=== PATIENT | female | born 1990 | race American Indian/Alaskan Native ===

== ENCOUNTER 2021-10-28 20:13 | Emergency (ER) | payer OTHER ==
[2021-10-29 01:58] LABS: HCG Qualitative,Urine Negative (Negative)
[2021-10-29 01:59] LABS: Bilirubin,Urine NEG (Negative); Blood,Urine MOD (Negative); Color,Urine Yellow (Yellow); Mucus,Urine 2+ /HPF
[2021-10-29 02:04] LABS: Basophils % (Auto) 0.6 % (0.0-1.8); Eosinophils # (Auto) 0.1 K/mm3 (0.0-0.4); Eosinophils % (Auto) 1.7 % (0.0-4.3); Hematocrit 52.2 % (30.3-42.9); Hemoglobin 16.9 gm/dl (10.1-14.3); Lymphocytes # (Auto) 2.8 K/mm3 (1.2-5.4); Lymphocytes % (Auto) 48.7 % (13.4-35.0); Mean Corpuscular HGB Conc 32 % (30-34); Mean Corpuscular Volume 90 fl (79-97); Monocytes # (Auto) 0.8 K/mm3 (0.0-0.8); Monocytes % (Auto) 13.3 % (0.0-7.3); Platelet Count 213 K/mm3 (140-440)
--- NOTE | 2021-10-29 02:19 | XRay Report ---
CHEST 2 VIEWS INDICATION / CLINICAL INFORMATION: palpitations. COMPARISON: None available. FINDINGS: SUPPORT DEVICES: None. HEART / MEDIASTINUM: No significant abnormality. LUNGS / PLEURA: No significant pulmonary or pleural abnormality. No pneumothorax. ADDITIONAL FINDINGS: Mild scoliosis of the lower thoracic spine apex to the right centered at T9-T10 interspace. IMPRESSION: 1. No active cardiopulmonary disease. Signer Name: Robert Negrete II, MD Signed: 10/29/2021 2:14 AM Workstation Name: [id number]
[2021-10-29 02:28] LABS: Alanine Aminotransferase 28 units/L (7-56); BUN/Creatinine Ratio 11; Blood Urea Nitrogen 14 mg/dL (7-17); Calcium 8.8 mg/dL (8.4-10.2); Hemolysis Index 18
[2021-10-29] MEDS ORDERED: SODIUM CHLORIDE 0.9% 1000 ML 1,000 ML IV ONE (05:37)
[2021-10-29] MEDS ORDERED: ONDANSETRON 4 MG/2 ML INJ IV ONE (05:37)
[2021-10-29] MEDS ORDERED: METOPROLOL TARTRATE 50 MG TAB PO ONE (07:01)
--- NOTE | 2021-10-29 07:07 | Emergency Department Report ---
ED Palpitations HPI - General Chief Complaint: Dyspnea/Respdistress Stated Complaint: PAIN URINTAING/HEART PALPATIONS Time Seen by Provider: 10/29/21 06:36 Source: patient, old records reviewed ([facility] Mode of arrival: Ambulatory Limitations: No Limitations - History of Present Illness Initial Comments: 31-year-old with a past medical history hypertension, paroxysmal atrial fibrillation presents to the hospital complaining of palpitations and dyspnea exertion for the last 2 days. Patient has reinitiated her backup Eliquis (1 tablet/day) for the past 2 days since symptoms began. Last episode of atrial fibrillation was 1 year ago. Patient had spontaneously converts to sinus rhythm without cardioversion in the past. She denies chest pain, nausea, vomiting, diaphoresis, calf tenderness, or leg edema. She is currently taking carvedilol 6.25 mg. She is out of her Norvasc 10 mg in triamterene 37.5 mg tablets. Patient also complains of some mild dysuria for the past 2 days without urinary frequency or urgency. Radiology Technologist: Dr. Duncan with [facility] - Related Data Previous Rx's Medication Instructions Recorded Last Taken Type Apixaban [Eliquis] 5 mg PO BID #60 tab 10/29/21 Unknown Rx Metoprolol [Lopressor TAB] 50 mg PO BID #60 tablet 10/29/21 Unknown Rx Allergies Allergy/AdvReac Type Severity Reaction Status Date / Time lisinopril Allergy Unknown Verified 10/28/21 22:02 ED Review of Systems ROS: Stated complaint: PAIN URINTAING/HEART PALPATIONS Other details as noted in HPI Comment: All other systems reviewed and negative ED Past Medical Hx - Past Medical History Previous Medical History?: No Hx Hypertension: Yes Additional medical history: afib - Surgical History Past Surgical History?: No - Medications Home Medications: Home Medications Medication Instructions Recorded Confirmed Last Taken Type Apixaban [Eliquis] 5 mg PO BID #60 tab 10/29/21 Unknown Rx Metoprolol [Lopressor TAB] 50 mg PO BID #60 tablet 10/29/21 Unknown Rx ED Physical Exam - General Limitations: No Limitations - Other Other exam information: General: No acute distress Head: Atraumatic Eyes: normal appearance ENT: Moist mucous membranes Neck: Normal appearance, no midline tenderness Chest: Clear to auscultation bilaterally CV: Mild tachycardia, regular rhythm Abdomen: Soft, normal bowel sounds, nontender, nondistended, no rebound or guard ing Back: Normal inspection Extremity: Normal inspection, full range of motion, no calf tenderness or leg edema Neuro: Alert O x 3, no facial asymmetry, speech clear, no gross motor sensory deficit Psych: Appropriate behavior Skin: No rash ED Course Vital Signs 10/28/21 10/29/21 10/29/21 21:59 01:57 08:24 Temperature 97.8 F Pulse Rate 65 110 H 100 H Respiratory 18 Rate Blood Pressure 150/109 147/93 Blood Pressure [Left] O2 Sat by Pulse 96 Oximetry 10/29/21 10:07 Temperature Pulse Rate 75 Respiratory 15 Rate Blood Pressure Blood Pressure 122/78 [Left] O2 Sat by Pulse 100 Oximetry - Consultations Consultation #1: 10/29/21 07:02 case discussed with on-call mulcher operator Dr. Moy who recommends metoprolol 50 mg twice daily and DC with follow if symptoms and heart rate improved. Patient will be instructed to discontinue her carvedilol and other BP medications at the time ED Medical Decision Making - Lab Data Result diagrams: 10/29/21 07:19 10/29/21 07:19 Lab Results 10/29/21 10/29/21 10/29/21 Range/Units 01:26 01:26 06:09 WBC 5.9 (4.5-11.0) K/mm3 RBC 5.80 H (3.65-5.03) M/mm3 Hgb 16.9 H (10.1-14.3) gm/dl Hct 52.2 H (30.3-42.9) % MCV 90 (79-97) fl MCH 29 (28-32) pg MCHC 32 (30-34) % RDW 15.0 (13.2-15.2) % Plt Count 213 (140-440) K/mm3 Lymph % (Auto) 48.7 H (13.4-35.0) % [place] % (Auto) 13.3 H (0.0-7.3) % Eos % (Auto) 1.7 (0.0-4.3) % Baso % (Auto) 0.6 (0.0-1.8) % Lymph # (Auto) 2.8 (1.2-5.4) K/mm3 [place] # (Auto) 0.8 (0.0-0.8) K/mm3 Eos # (Auto) 0.1 (0.0-0.4) K/mm3 Baso # (Auto) 0.0 (0.0-0.1) K/mm3 Seg Neutrophils % 35.7 L (40.0-70.0) % Seg Neutrophils # 2.1 (1.8-7.7) K/mm3 PT (12.2-14.9) Sec. INR (0.87-1.13) APTT (24.2-36.6) Sec. Sodium 141 (137-145) mmol/L Potassium 3.9 (3.6-5.0) mmol/L Chloride 104.3 (98-107) mmol/L Carbon Dioxide 25 (22-30) mmol/L Anion Gap 16 mmol/L BUN 14 (7-17) mg/dL Creatinine 1.3 H (0.6-1.2) mg/dL Estimated GFR 48 ml/min BUN/Creatinine Ratio 11 % Glucose 81 (65-100) mg/dL Calcium 8.8 (8.4-10.2) mg/dL Total Bilirubin 0.60 (0.1-1.2) mg/dL AST 19 (5-40) units/L ALT 28 (7-56) units/L Alkaline Phosphatase 124 (35-129) units/L Troponin T < 0.010 < 0.010 (0.00-0.029) ng/mL Total Protein 8.1 (6.3-8.2) g/dL Albumin 4.0 (3.9-5) g/dL Albumin/Globulin Ratio 1.0 % TSH (0.270-4.200) mlU/mL Urine Color (Yellow) Urine Turbidity (Clear) Urine pH (5.0-7.0) Ur Specific [place] (1.003-1.030) Urine Protein (Negative) mg/dL Urine Glucose (UA) (Negative) mg/dL Urine Ketones (Negative) mg/dL Urine Blood (Negative) Urine Nitrite (Negative) Ur Reducing Substances Urine Bilirubin (Negative) Urine Ictotest Urine Urobilinogen (<2.0) mg/dL Ur Leukocyte Esterase (Negative) Urine WBC (Auto) (0.0-6.0) /HPF Urine RBC (Auto) (0.0-6.0) /HPF U Epithel Cells (Auto) (0-13.0) /HPF Urine Mucus /HPF Urine HCG, Qual (Negative) 10/29/21 10/29/21 10/29/21 Range/Units 06:09 07:19 07:19 WBC 6.2 (4.5-11.0) K/mm3 RBC 5.41 H (3.65-5.03) M/mm3 Hgb 14.9 H (10.1-14.3) gm/dl Hct 48.3 H (30.3-42.9) % MCV 89 (79-97) fl MCH 28 (28-32) pg MCHC 31 (30-34) % RDW 15.0 (13.2-15.2) % Plt Count 206 (140-440) K/mm3 Lymph % (Auto) (13.4-35.0) % [place] % (Auto) (0.0-7.3) % Eos % (Auto) (0.0-4.3) % Baso % (Auto) (0.0-1.8) % Lymph # (Auto) (1.2-5.4) K/mm3 [place] # (Auto) (0.0-0.8) K/mm3 Eos # (Auto) (0.0-0.4) K/mm3 Baso # (Auto) (0.0-0.1) K/mm3 Seg Neutrophils % (40.0-70.0) % Seg Neutrophils # (1.8-7.7) K/mm3 PT 13.4 (12.2-14.9) Sec. INR 0.92 (0.87-1.13) APTT 32.8 (24.2-36.6) Sec. Sodium (137-145) mmol/L Potassium (3.6-5.0) mmol/L Chloride (98-107) mmol/L Carbon Dioxide (22-30) mmol/L Anion Gap mmol/L BUN (7-17) mg/dL Creatinine (0.6-1.2) mg/dL Estimated GFR ml/min BUN/Creatinine Ratio % Glucose (65-100) mg/dL Calcium (8.4-10.2) mg/dL Total Bilirubin (0.1-1.2) mg/dL AST (5-40) units/L ALT (7-56) units/L Alkaline Phosphatase (35-129) units/L Troponin T (0.00-0.029) ng/mL Total Protein (6.3-8.2) g/dL Albumin (3.9-5) g/dL Albumin/Globulin Ratio % TSH 3.010 (0.270-4.200) mlU/mL Urine Color (Yellow) Urine Turbidity (Clear) Urine pH (5.0-7.0) Ur Specific [place] (1.003-1.030) Urine Protein (Negative) mg/dL Urine Glucose (UA) (Negative) mg/dL Urine Ketones (Negative) mg/dL Urine Blood (Negative) Urine Nitrite (Negative) Ur Reducing Substances Urine Bilirubin (Negative) Urine Ictotest Urine Urobilinogen (<2.0) mg/dL Ur Leukocyte Esterase (Negative) Urine WBC (Auto) (0.0-6.0) /HPF Urine RBC (Auto) (0.0-6.0) /HPF U Epithel Cells (Auto) (0-13.0) /HPF Urine Mucus /HPF Urine HCG, Qual (Negative) 10/29/21 10/29/21 Range/Units 07:19 Unknown WBC (4.5-11.0) K/mm3 RBC (3.65-5.03) M/mm3 Hgb (10.1-14.3) gm/dl Hct (30.3-42.9) % MCV (79-97) fl MCH (28-32) pg MCHC (30-34) % RDW (13.2-15.2) % Plt Count (140-440) K/mm3 Lymph % (Auto) (13.4-35.0) % [place] % (Auto) (0.0-7.3) % Eos % (Auto) (0.0-4.3) % Baso % (Auto) (0.0-1.8) % Lymph # (Auto) (1.2-5.4) K/mm3 [place] # (Auto) (0.0-0.8) K/mm3 Eos # (Auto) (0.0-0.4) K/mm3 Baso # (Auto) (0.0-0.1) K/mm3 Seg Neutrophils % (40.0-70.0) % Seg Neutrophils # (1.8-7.7) K/mm3 PT (12.2-14.9) Sec. INR (0.87-1.13) APTT (24.2-36.6) Sec. Sodium (137-145) mmol/L Potassium (3.6-5.0) mmol/L Chloride (98-107) mmol/L Carbon Dioxide (22-30) mmol/L Anion Gap mmol/L BUN (7-17) mg/dL Creatinine 1.1 (0.6-1.2) mg/dL Estimated GFR > 60 ml/min BUN/Creatinine Ratio % Glucose (65-100) mg/dL Calcium (8.4-10.2) mg/dL Total Bilirubin (0.1-1.2) mg/dL AST (5-40) units/L ALT (7-56) units/L Alkaline Phosphatase (35-129) units/L Troponin T (0.00-0.029) ng/mL Total Protein (6.3-8.2) g/dL Albumin (3.9-5) g/dL Albumin/Globulin Ratio % TSH (0.270-4.200) mlU/mL Urine Color Yellow (Yellow) Urine Turbidity Slightly-cloudy (Clear) Urine pH 5.0 (5.0-7.0) Ur Specific [place] 1.026 (1.003-1.030) Urine Protein 30 mg/dl (Negative) mg/dL Urine Glucose (UA) Neg (Negative) mg/dL Urine Ketones Neg (Negative) mg/dL Urine Blood Mod (Negative) Urine Nitrite Neg (Negative) Ur Reducing Substances Not Reportable Urine Bilirubin Neg (Negative) Urine Ictotest Not Reportable Urine Urobilinogen 2.0 (<2.0) mg/dL Ur Leukocyte Esterase Neg (Negative) Urine WBC (Auto) 2.0 (0.0-6.0) /HPF Urine RBC (Auto) 12.0 (0.0-6.0) /HPF U Epithel Cells (Auto) 25.0 H (0-13.0) /HPF Urine Mucus 2+ /HPF Urine HCG, Qual Negative (Negative) - EKG Data -: EKG Interpreted by Me (Atrial fibrillation rate 111) EKG shows normal: ST-T waves (No ST elevation MD) Rate: tachycardia (111) - Radiology Data Radiology results: report reviewed CHEST 2 VIEWS INDICATION / CLINICAL INFORMATION: palpitations. COMPARISON: None available. FINDINGS: SUPPORT DEVICES: None. HEART / MEDIASTINUM: No significant abnormality. LUNGS / PLEURA: No significant pulmonary or pleural abnormality. No pneumothorax. ADDITIONAL FINDINGS: Mild scoliosis of the lower thoracic spine apex to the right centered at T9- T10 interspace. IMPRESSION: 1. No active cardiopulmonary disease. - Medical Decision Making 31-year-old female presents to the hospital planing of palpitations and dyspnea exertion for last 2 days. EKG confirms recurrent atrial fibrillation. Patient will need to twice daily dosing of Eliquis for anticoagulation and metoprolol for rate control which was initiated in the ED. Patient heart rate and symptoms improved prior to discharge. Patient will be sure to follow-up with her outpatient mulcher operator. Case was discussed with mulcher operator on-call prior to discharge Critical Care Time: No Critical care attestation.: If time is entered above; I have spent that time in minutes in the direct care of this critically ill patient, excluding procedure time. ED Disposition Clinical Impression: Atrial fibrillation with rapid ventricular response Disposition: 01 HOME / SELF CARE / HOMELESS Is pt being admited?: No Does the pt Need Aspirin: No Condition: Stable Instructions: Atrial Fibrillation, [id number], Bleeding Precautions When on Anticoagulant Therapy, Adult Additional Instructions: Take the medication as prescribed. Stop your carvedilol and other blood pressure medication. Follow-up with your mulcher operator. Return if symptoms worsen as indicated by your discharge instructions. Prescriptions: Apixaban [Eliquis] 5 mg PO BID #60 tab Metoprolol [Lopressor TAB] 50 mg PO BID #60 tablet Referrals: WANDY ESTRADA MD [Primary Care Provider] - 3-5 Days AISHA DUNCAN MD [Staff Physician] - 3-5 Days (Radiology Technologist) Time of Disposition: 10:36
[2021-10-29] MEDS ORDERED: APIXABAN 5 MG TAB PO ONE (07:15)
[2021-10-29 07:36] LABS: Hematocrit 48.3 % (30.3-42.9); Hemoglobin 14.9 gm/dl (10.1-14.3); Mean Corpuscular HGB Conc 31 % (30-34); Mean Corpuscular Volume 89 fl (79-97); Platelet Count 206 K/mm3 (140-440); Red Blood Count 5.41 M/mm3 (3.65-5.03)
[2021-10-29 07:48] LABS: INR 0.92 (0.87-1.13); Partial Thromboplastin Time 32.8 Sec. (24.2-36.6)
--- NOTE | 2021-10-29 10:02 | Electrocardiograph Report ---
[facility] Test Date: 2021-10-29 Test Time: 01:46:32 Pat Name: ANDREW MARTINEZ Department: Room: Gender: F Mat Roller: HARPREET : 1990 Requested By: ANANT BROWN Order Number: [id number] Reading MD: Jesus Arias Measurements Intervals [place] Rate: 111 P: FL: QRS: 59 QRSD: 81 T: -29 QT: 312 QTc: 422 Interpretive Statements Atrial fibrillation Ventricular premature complex No previous ECG available for comparison Electronically Signed On 10-29-2021 10:01:52 EST by Jesus Arias
[2021-10-29 10:08] VITALS: BP 122/78
== END 2021-10-29 10:55 | disposition home or self-care (01) ==
LOC: ED 20:13
DX: I48.20 Chronic atrial fibrillation, unspecified (principal); I10 Essential (primary) hypertension; Z88.8 Allergy status to other drugs, medicaments and biological substances; Z79.01 Long term (current) use of anticoagulants; Z79.899 Other long term (current) drug therapy
CPT/HCPCS: 36415; 71046; 80053; 81001; 81025; 82565; 84443; 84484; 85025; 85027; 85610; 85730; 93005; 93010; 96361; 96374; 99284; J2405; J7030; Q0162